=== PATIENT | male | born 1950 | race African-American/Black ===

== ENCOUNTER 2020-04-21 02:14 | Emergency (ER) | payer MEDICARE, MEDICAID ==
[~2020-04-21] VITALS: Ht 180.3 cm; Wt 130.0 kg
[2020-04-21 02:52] LABS: BASOPHILS % (AUTO) 0 % (0-1); EOSINOPHILS % (AUTO) 2 % (1-7); LYMPHOCYTES % (AUTO) 41 % (22-44); MD NO; MEAN CORPUSCULAR HEMOGLOBIN 32.6 pg (27.5-34.5); MEAN CORPUSCULAR HGB CONC 34.1 g/dL (33.2-36.2); MEAN PLATELET VOLUME 8.2 fL (7.4-10.4); MONOCYTES % (AUTO) 8 % (2-9); NEUTROPHILS % (AUTO) 49 % (42-75); PLATELET COUNT 239 x10^3/uL (130-400); RED BLOOD COUNT 4.92 x10^6/uL (4.38-5.82); RED CELL DISTRIBUTION WIDTH 13.4 % (9.4-14.8)
[2020-04-21 03:01] LABS: ALANINE AMINOTRANSFERASE 36 U/L (12-78); ANION GAP 6 mmol/L (5-15); CALCIUM 9.5 mg/dL (8.5-10.1); CHLORIDE 105 mmol/L (98-107)
[2020-04-21 03:04] LABS: ALKALINE PHOSPHATASE 88 U/L (45-117); BILIRUBIN,TOTAL 1.5 mg/dL (0.2-1.0); CREATININE 0.98 mg/dL (0.7-1.3); TOTAL PROTEIN 8.7 g/dL (6.4-8.2)
--- NOTE | 2020-04-21 03:42 | NUR ---
commercial escrow officer: pt from lobby to room 21
--- NOTE | 2020-04-21 03:54 | NUR ---
BREAK RN: PT PLACED ON MONITOR, TOLERATING INTERVENTIONS WELL. UPDATED ON PLAN OF CARE. NO NOTED NEEDS AT THIS TIME.
[2020-04-21] MEDS ORDERED: LOPERAMIDE 2 MG CAPSULE PO ONE (05:30)
[2020-04-21] MEDS ORDERED: ONDANSETRON ODT 8 MG PO ONE (05:30)
[2020-04-21] MEDS ORDERED: ONDANSETRON ODT 8 MG ONE (05:46)
[2020-04-21] MEDS ORDERED: LOPERAMIDE 2 MG CAPSULE ONE (05:46)
[2020-04-21 06:08] LABS: CLOSTRIDIUM DIFFICILE ANTIGEN NEGATIVE; CLOSTRIDIUM DIFFICILE TOXIN NEGATIVE (Negative)
--- NOTE | 2020-04-21 06:54 | NUR ---
REPORT TO AMIRA
--- NOTE | 2020-04-21 07:01 | NUR ---
Report received from DIOR Singh and care assumed. Pt in room speaking with admission social welfare clerk at this time and noted to be up for d/c to home.
--- NOTE | 2020-04-21 07:30 | NUR ---
Pt discharged but taken back upstairs to his 's room, 517, per pt request via wheelchair with hvac technician residential.
[2020-04-21 07:56] VITALS: BP 139/69
[2020-04-21 08:45] LABS: CRYPTOSPORIDIUM ANTIGEN Negative (Negative)
== END 2020-04-21 08:00 | disposition home or self-care (01) ==
LOC: ED 06:53
DX: R11.2 Nausea with vomiting, unspecified (principal); R19.7 Diarrhea, unspecified; R10.9 Unspecified abdominal pain
CPT/HCPCS: 36415; 80053; 83690; 85025; 87046; 87324; 87328; 87329; 99283; Q0162; 87427